=== PATIENT | female | born 1930 ===

== ENCOUNTER 2019-05-03 15:21 | Inpatient (IN) | payer MEDICARE ==
[2019-05-04] MEDS: VALPROIC ACID 250 MG/5 ML ORAL LIQD PO SCH ×4 (00:14→21:15)
[2019-05-04] MEDS: OMEGA-3 FATTY ACIDS/FISH OIL 1 GRAM CAP PO SCH ×4 (00:14→21:15)
[2019-05-04] MEDS: MIRTAZAPINE 15 MG TAB PO SCH ×2 (00:15→21:15)
--- NOTE | 2019-05-04 09:55 | History and Physical Report ---
GP History & Physical - History of Present Illness Date of admission: 05/03/19 Date of Examination: 05/04/19 Reason for Admission: Danger to others, Unable to care for self Chief Complaint: demential with behavioral disturbance History of Present Illness: Medical records reviewed and the patient's progress discussed with nursing staff. Pt is alert, calm, and cooperative. Vital signs checked in right arm 97.6, 965 sat, 90hr. br 126/45. Pt able to answer some of the admission questionnaire with some noted slight confusion. Ms Ely is a 88 years old female, she is aaox1, she is dress appropriately, she is ambulatory. she reports that she is somewhere in the hospital, when asked if she knew why she was here she stated, " Ajay thinks I am crazy, he never like me". she reported ajay as her son -in- law. she denies SI, stated, "I couldn't hurt a pin, the bible say its wrong". She reports hearing voices for about a year, she reports, i hear them but i dont respond to them, i listen to their conversations, but i ignore them a lot. she denies seeing things. 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 Family Psychiatric History None reported or documented SOCIAL HISTORY Marital Status: Living Arrangements:family Employment Status: retired Access to guns/weapons:no Education:12th History of Abuse: no Legal History:denies REVIEW OF SYSTEMS Constitutional: Negative for weight loss ENT: Negative for stridor Respiratory: Negative for cough or hemoptysis All other systems reviewed and are negative MENTAL STATUS General Appearance and Behavior: good eye contact, cooperative with questioning and polite Cooperation: Cooperative Psychomotor Behavior: within normal limits Mood: OK Affect and affective range: Congruent with stated mood Thought Process: circumstantial Thought Content: goal- directed Speech: Normal volume and Regular rate and rhythm Intellectual Functioning Average Suicidal Ideation: Denies SI Homicidal Ideation: Denies HI Impulse Control: intact Insight and Judgment: limited Memory: forgetful Attention: Normal Orientation: aaox1 Diagnoses: dementia with behavioral disturbance Treatment Plan Patient will be admitted for inpatient psychiatric evaluation, medication adjustment and close monitoring The patient's behavior, mood, sleep and appetite will be closely monitored. Patient will be enrolled in individual and group therapeutic sessions and encouraged to attend. Patient will be provided with a safe and structured environment. Patient's physical health needs will be addressed by the Hospitalist. Hospitalist Consulted Labs including CBC, CMP, Lipid profile and Hemoglobin A1C ordered Social Assessment will be completed and the Hat Body Sorter will work with patient and family to ensure a suitable and safe disposition Medication adjustment will be made as clinically indicated Usual Wellness Latter-Day/Preservation: - Start [place]-3 for brain health, reduce impulsivity, and as adjunctive treatment for mood disorder, continue upon discharge given overall benefits. The patient agreed on the treatment plan, understood the risk, benefit, alternative treatment, potential consequence of no treatment, and gave informed consent. Physician Certification Statement This is an acknowledgement statement that ROD MERAZ is a 88 year old F who requires inpatient psychiatric admission for treatment which could reasonably be expected to improve the patient's condition for: Estimated period of time patient will need to remain in the hospital: [7 ] Plan for post-hospital care: [outpatient ] Legal Status: Involuntary Reaction to Hospitalization: Resistant Medications and Allergies Allergies Allergy/AdvReac Type Severity Reaction Status Date / Time fluticasone furoate Allergy Unknown Verified 05/03/19 17:04 [From Breo Ellipta] naproxen [From Aleve] Allergy Unknown Verified 05/03/19 17:04 vilanterol Allergy Unknown Verified 05/03/19 17:04 [From Breo Ellipta] Home Medications Medication Instructions Recorded Confirmed Last Taken Type Cardizem 180 mg PO QDAY 05/03/19 05/03/19 Unknown History Dofetilide [Tikosyn] 250 mcg PO BID 05/03/19 05/03/19 Unknown History Mirtazapine 7.5 mg PO QHS 05/03/19 05/03/19 Unknown History Pantoprazole Sodium [Protonix] 40 mg PO QDAY 05/03/19 05/03/19 Unknown History Valproic Acid 125 mg PO BID 05/03/19 05/03/19 Unknown History Active Meds: Active Medications Fish Oil (Fish Oil) 2,000 mg PO BID [facility] Last Admin: 05/04/19 00:14 Dose: 2,000 mg Documented by: Haloperidol Lactate (Haldol) 5 mg IM Q6H PRN PRN Reason: Agitation Mirtazapine (Remeron) 7.5 mg PO QHS [facility] Last Admin: 05/04/19 00:15 Dose: 7.5 mg Documented by: Pantoprazole Sodium (Protonix) 40 mg PO QDAY [facility] Valproic Acid (Depakene Liq) 125 mg PO BID [facility] Last Admin: 05/04/19 00:14 Dose: 125 mg Documented by: Past psychiatric history - Past Medical History Past Medical History: atrial fib Results - Results Labs/Vitals: Last Vital Signs Temp 97.6 F 05/03/19 23:35 Pulse 90 05/03/19 23:35 Resp 18 05/03/19 23:35 BP Pulse Ox Physical Examination - Constitutional Vitals: Vital Signs Temp Pulse Resp BP Pulse Ox 97.6 F 90 18 05/03/19 23:35 05/03/19 23:35 05/03/19 23:35 Temperature -Last 24 Hours Temperature 97.6 F Mental Status Exam - Vital signs Last Vital Signs Temp 97.6 F 05/03/19 23:35 Pulse 90 05/03/19 23:35 Resp 18 05/03/19 23:35 BP Pulse Ox Physician Certification - Certification Statement Physician Certification Statement: This is an acknowledgement statement that ROD MERAZ is a 88 year old F who requires inpatient psychiatric admission for treatment which could reasonably be expected to improve the patient's condition for Estimated period of time patient will need to remain in the hospital: [7 ] Plan for post-hospital care: [outpatient ]
[2019-05-04] MEDS: PANTOPRAZOLE 40 MG TAB PO SCH ×2 (10:24→11:12)
[2019-05-04 15:45] LABS: Basophils % (Auto) 0.3 % (0.0-1.8); Eosinophils # (Auto) 0.2 K/mm3 (0.0-0.4); Eosinophils % (Auto) 2.1 % (0.0-4.3); Hematocrit 38.6 % (30.3-42.9); Hemoglobin 13.1 gm/dl (10.1-14.3); Lymphocytes # (Auto) 1.2 K/mm3 (1.2-5.4); Lymphocytes % (Auto) 11.4 % (13.4-35.0); Mean Corpuscular HGB Conc 34 % (30-34); Mean Corpuscular Volume 89 fl (79-97); Monocytes # (Auto) 0.7 K/mm3 (0.0-0.8); Monocytes % (Auto) 6.7 % (0.0-7.3); Platelet Count 202 K/mm3 (140-440); Red Blood Count 4.32 M/mm3 (3.65-5.03); Red Cell Distribution Width 13.5 % (13.2-15.2)
[2019-05-04 16:05] LABS: BUN/Creatinine Ratio 29; Blood Urea Nitrogen 23 mg/dL (7-17); Calcium 9.1 mg/dL (8.4-10.2); Hemolysis Index 13
--- NOTE | 2019-05-04 16:44 | Consultation ---
History of Present Illness - Reason for Consult Consult date: 05/04/19 afib Requesting physician: GUERA MENDEZ - History of Present Illness Patient is an 88-year-old female with past medical history significant for atrial fibrillation, prior history of endocarditis, hip replacement artificial aortic valve replacement. The patient presents to the Hetal psych unit from an outside facility where she was treated for paranoia. She is currently actively being managed by the psychiatric team. We will consulted to evaluate and help manage her medical condition. She denies any chest pain nausea vomiting at this time she is lethargic after eating and did not want to talk much. No other adverse event is reported by nursing staff. 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 Question diabetes mellitus Congestive heart failure Dementia Past History Past Medical History: atrial fib, hypertension, hyperlipidemia Past Surgical History: No surgical history Social history: no significant social history, lives with family, full code Family history: no significant family history Medications and Allergies Allergies Allergy/AdvReac Type Severity Reaction Status Date / Time fluticasone furoate Allergy Unknown Verified 05/03/19 17:04 [From Breo Ellipta] naproxen [From Aleve] Allergy Unknown Verified 05/03/19 17:04 vilanterol Allergy Unknown Verified 05/03/19 17:04 [From Breo Ellipta] Home Medications Medication Instructions Recorded Confirmed Last Taken Type Cardizem 180 mg PO QDAY 05/03/19 05/03/19 Unknown History Dofetilide [Tikosyn] 250 mcg PO BID 05/03/19 05/03/19 Unknown History Mirtazapine 7.5 mg PO QHS 05/03/19 05/03/19 Unknown History Pantoprazole Sodium [Protonix] 40 mg PO QDAY 05/03/19 05/03/19 Unknown History Valproic Acid 125 mg PO BID 05/03/19 05/03/19 Unknown History Active Meds: Active Medications Fish Oil (Fish Oil) 2,000 mg PO BID [facility] Last Admin: 05/04/19 11:12 Dose: Not Given Documented by: Haloperidol Lactate (Haldol) 5 mg IM Q6H PRN PRN Reason: Agitation Mirtazapine (Remeron) 7.5 mg PO QHS [facility] Last Admin: 05/04/19 00:15 Dose: 7.5 mg Documented by: Pantoprazole Sodium (Protonix) 40 mg PO QDAY [facility] Last Admin: 05/04/19 11:12 Dose: Not Given Documented by: Valproic Acid (Depakene Liq) 125 mg PO BID [facility] Last Admin: 05/04/19 11:11 Dose: Not Given Documented by: Review of Systems ROS unobtainable: due to mental status All systems: negative Constitutional: no weight loss, no weight gain, no fever, no chills Ears, nose, mouth and throat: no nasal congestion Cardiovascular: no palpitations, no dyspnea on exertion, no high blood pressure Gastrointestinal: no abdominal pain, no vomiting, no hematemesis Exam - Physical Exam Narrative exam: VITAL SIGNS: Reviewed. GENERAL: The patient appears normally developed, lethargic, Vital signs as documented. HEAD: No signs of head trauma. EYES: Pupils are equal. Extraocular motions intact. EARS: Hearing grossly intact. MOUTH: Oropharynx is normal. NECK: No adenopathy, no JVD. CHEST: Chest with clear breath sounds bilaterally. No wheezes, rales, or rhonchi. CARDIAC: Regular rate and rhythm. S1 and S2, without murmurs, gallops, or rubs. VASCULAR: No Edema. Peripheral pulses normal and equal in all extremities. ABDOMEN: Soft, non tender and non distended. No rebound or guarding, and no masses palpated. Bowel Sounds normal. MUSCULOSKELETAL: Good range of motion of all major joints. Extremities without clubbing, cyanosis or edema. NEUROLOGIC EXAM: Alert and oriented x 3 No focal sensory or strength deficits. Speech normal. Follows commands. PSYCHIATRIC: Mood normal. SKIN: detail exam as documented in skin assessment - Constitutional Vitals: Temp Pulse Resp BP Pulse Ox 97.6 F 90 18 05/03/19 23:35 05/03/19 23:35 05/03/19 23:35 Results - Labs CBC & Chem 7: 05/04/19 15:21 05/04/19 15:21 Labs: Abnormal lab results 05/04/19 05/04/19 05/04/19 Range/Units 15:21 15:21 15:21 Lymph % (Auto) 11.4 L (13.4-35.0) % Seg Neutrophils % 79.5 H (40.0-70.0) % Seg Neutrophils # 8.4 H (1.8-7.7) K/mm3 Chloride 93.9 L (98-107) mmol/L BUN 23 H (7-17) mg/dL Valproic Acid 14.7 L (50-100) ug/mL Assessment and Plan Patient is an 88-year-old female with past medical history significant for atrial fibrillation, prior history of endocarditis, hip replacement artificial aortic valve replacement. The patient presents to the Hetal psych unit from an outside facility where she was treated for paranoia. She is currently actively being managed by the psychiatric team. We will consulted to evaluate and help manage her medical condition. She denies any chest pain nausea vomiting at this time she is lethargic after eating and did not want to talk much. No other adverse event is reported by nursing staff. Paranoia- Management per psych A-FIB: Stable, agree with resumption of meds Hip replacement Artificial aortic valve replacement Question diabetes mellitus: stable, no full detail, not on any medication, will check A1C Congestive heart failure: stable Dementia Thank you for allowing us to take part in the care of your patient please reconsult if needed.
--- NOTE | 2019-05-05 08:59 | Progress Note ---
Subjective Date of service: 05/05/19 Subjective Comment: Subjective Comment: Reviewed the patient's medical chart and discussed progress with nursing staff. Per chart, pt is alert and oriented to person, confused, delusional, irritable, refused bedtime medication, refused snacks, pt requires no prn during the shift, pt slept for approximately 6hrs during the shift. 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 she denies SI/HI and AVH. She report her mood as hurting. Reason for continued admission into the hospital: Improve tx, medication compliance and increase confusion REVIEW OF SYSTEMS Constitutional: Negative for weight loss ENT: Negative for stridor Respiratory: Negative for cough or hemoptysis All other systems reviewed and are negative Mental Status Exam Appearance:dress appriopriately Behavior: calm cooperative Mood: hurting Affect: congruent with mood Thought Process: goal directed Speech: normal Thought Content Harmfulness : denies Hallucinations:denies Delusions: no Consciousness: Alert Cognition/Memory: Fair Insight/Judgment: Limited. Assessment: dementia with behavioral disturbance Treatment Plan Due to the psychiatric conditions and treatment listed in the Assessment and Plan - the patient requires continued hospitalization. Will continue inpatient treatment to allow for medication adjustment and monitoring. Will continue q15 min safety checks. Will encourage the use of environmental modifications and non-pharmacologic approaches for the management of behavioral and psychological symptoms. Medication adjustment made today: none Will continue current psych medications Monitor for medication side effects. The patient will continue on medications for physical illnesses, and Hospitalist will closely monitor these Continue intensive physical and occupational therapies. Monitor patient's mood, sleep, appetite, and behavior closely. Encourage patient to participate in individual and group therapeutic sessions on the bone. Will provide a safe and therapeutic environment for patient. ELOS 3 days Medications and Allergies Allergies Allergy/AdvReac Type Severity Reaction Status Date / Time fluticasone furoate Allergy Unknown Verified 05/03/19 17:04 [From Breo Ellipta] naproxen [From Aleve] Allergy Unknown Verified 05/03/19 17:04 vilanterol Allergy Unknown Verified 05/03/19 17:04 [From Breo Ellipta] Home Medications Medication Instructions Recorded Confirmed Last Taken Type Cardizem 180 mg PO QDAY 05/03/19 05/03/19 Unknown History Dofetilide [Tikosyn] 250 mcg PO BID 05/03/19 05/03/19 Unknown History Mirtazapine 7.5 mg PO QHS 05/03/19 05/03/19 Unknown History Pantoprazole Sodium [Protonix] 40 mg PO QDAY 05/03/19 05/03/19 Unknown History Valproic Acid 125 mg PO BID 05/03/19 05/03/19 Unknown History Active Meds: Active Medications Fish Oil (Fish Oil) 2,000 mg PO BID [facility] Last Admin: 05/04/19 21:15 Dose: Not Given Documented by: Haloperidol Lactate (Haldol) 5 mg IM Q6H PRN PRN Reason: Agitation Mirtazapine (Remeron) 7.5 mg PO QHS [facility] Last Admin: 05/04/19 21:15 Dose: Not Given Documented by: Pantoprazole Sodium (Protonix) 40 mg PO QDAY [facility] Last Admin: 05/04/19 11:12 Dose: Not Given Documented by: Valproic Acid (Depakene Liq) 125 mg PO BID [facility] Last Admin: 05/04/19 21:15 Dose: Not Given Documented by: Results - Results Labs/Vitals: Laboratory Last Values WBC 10.6 K/mm3 (4.5-11.0) 05/04/19 15:21 RBC 4.32 M/mm3 (3.65-5.03) 05/04/19 15:21 Hgb 13.1 gm/dl (10.1-14.3) 05/04/19 15:21 Hct 38.6 % (30.3-42.9) 05/04/19 15:21 MCV 89 fl (79-97) 05/04/19 15:21 MCH 30 pg (28-32) 05/04/19 15:21 MCHC 34 % (30-34) 05/04/19 15:21 RDW 13.5 % (13.2-15.2) 05/04/19 15:21 Plt Count 202 K/mm3 (140-440) 05/04/19 15:21 Lymph % (Auto) 11.4 % (13.4-35.0) L 05/04/19 15:21 Richardson % (Auto) 6.7 % (0.0-7.3) 05/04/19 15:21 Eos % (Auto) 2.1 % (0.0-4.3) 05/04/19 15:21 Baso % (Auto) 0.3 % (0.0-1.8) 05/04/19 15:21 Lymph # 1.2 K/mm3 (1.2-5.4) 05/04/19 15:21 Richardson # 0.7 K/mm3 (0.0-0.8) 05/04/19 15:21 Eos # 0.2 K/mm3 (0.0-0.4) 05/04/19 15:21 Baso # 0.0 K/mm3 (0.0-0.1) 05/04/19 15:21 Seg Neutrophils % 79.5 % (40.0-70.0) H 05/04/19 15:21 Seg Neutrophils # 8.4 K/mm3 (1.8-7.7) H 05/04/19 15:21 Sodium 137 mmol/L (137-145) 05/04/19 15:21 Potassium 4.1 mmol/L (3.6-5.0) 05/04/19 15:21 Chloride 93.9 mmol/L (98-107) L 05/04/19 15:21 Carbon Dioxide 25 mmol/L (22-30) 05/04/19 15:21 Anion Gap 22 mmol/L 05/04/19 15:21 BUN 23 mg/dL (7-17) H 05/04/19 15:21 Creatinine 0.8 mg/dL (0.7-1.2) 05/04/19 15:21 Estimated GFR > 60 ml/min 05/04/19 15:21 BUN/Creatinine Ratio 29 % 05/04/19 15:21 Glucose 83 mg/dL (65-100) 05/04/19 15:21 Hemoglobin A1c 5.1 % (4-6) 05/04/19 15:21 Calcium 9.1 mg/dL (8.4-10.2) 05/04/19 15:21 TSH 1.200 mlU/mL (0.270-4.200) 05/04/19 15:21 Valproic Acid 14.7 ug/mL (50-100) L 05/04/19 15:21 Last Vital Signs Temp 97.9 F 05/04/19 08:20 Pulse 94 H 05/04/19 22:00 Resp 20 05/04/19 22:00 BP 121/51 05/04/19 08:20 Pulse Ox 95 05/04/19 08:20
[2019-05-05] MEDS: OMEGA-3 FATTY ACIDS/FISH OIL 1 GRAM CAP PO SCH ×3 (09:34→21:45)
[2019-05-05] MEDS: PANTOPRAZOLE 40 MG TAB PO SCH ×2 (09:34→10:01)
[2019-05-05] MEDS: VALPROIC ACID 250 MG/5 ML ORAL LIQD PO SCH ×3 (09:35→21:45)
[2019-05-05] MEDS: MIRTAZAPINE 15 MG TAB PO SCH (21:45)
[2019-05-05] MEDS: HALOPERIDOL LACTATE 5 MG/1 ML INJ IM PRN (23:08)
--- NOTE | 2019-05-06 07:38 | Progress Note ---
Subjective Date of service: 05/06/19 Principal diagnosis: Dementia w/Behavioral Disturbance Subjective Comment: Reviewed the medical chart and discussed the patient's progress with nursing staff. The nurse note states the patient has become increasingly agitated after going to bed. She refused all her medications this evening. She keeps trying to get up and get dressed stating that she is leaving. She has been reoriented and given comfort. Staff has tried distraction by talking about her family. The patient is staring at staff with angry affect and yelling at staff because we won't provide her clothing to leave. Haldol 5 mg im given for agitation. Subjective Complaint During my interview this morning the patient was lying in bed asleep. Arouses easily but drifts back to sleep. She is dressed appropriately. The patient is hard of hearing. She is a/o x 2. Mrs. Stone says she's here for "life care." The patient says she is "tired and stiff" when asked how she was feeling. She says "not well" when inquiring about her sleep. Mrs. Stone denies SI/HI or halluc inations of any kind. She replies "I'm not hungry" when asked about her appetite. Reason for continued stay in the hospital: The patient has increasing agitation and is unable to care for herself REVIEW OF SYSTEMS Constitutional: Negative for weight loss ENT: Negative for stridor Respiratory: Negative for cough or hemoptysis All other systems reviewed and are negative Mental Status Exam Appearance: In bed. Asleep. Fair eye contact Behavior: Calm Mood: "tired" Affect: Congruent with stated mood Thought Process: goal directed Speech: Normal pace and tone Thought Content Harmfulness Denies SI/HI Hallucinations: Denies Delusions: none elicited Consciousness: Drowsy Cognition/Memory: Limited Insight/Judgment: Limited. Diagnoses: dementia with behavioral disturbance Treatment Plan Due to the psychiatric conditions and treatment listed in the Assessment and Plan - the patient requires continued hospitalization. Will continue inpatient treatment to allow for medication adjustment and monitoring. Will continue q15 min safety checks. Will encourage the use of environmental modifications and non-pharmacologic approaches for the management of behavioral and psychological symptoms. Medication adjustment made today: No changes made today Will continue current psych medications Monitor for medication side effects. The patient will continue on medications for physical illnesses, and Hospitalist will closely monitor these Continue intensive physical and occupational therapies. Monitor patient's mood, sleep, appetite, and behavior closely. Encourage patient to participate in individual and group therapeutic sessions on the bone. Will provide a safe and therapeutic environment for patient. CONRAD 4 days Legal Status: Involuntary Reaction to Hospitalization: Resistant Medications and Allergies Allergies Allergy/AdvReac Type Severity Reaction Status Date / Time fluticasone furoate Allergy Unknown Verified 05/03/19 17:04 [From Breo Ellipta] naproxen [From Aleve] Allergy Unknown Verified 05/03/19 17:04 vilanterol Allergy Unknown Verified 05/03/19 17:04 [From Breo Ellipta] Home Medications Medication Instructions Recorded Confirmed Last Taken Type Cardizem 180 mg PO QDAY 05/03/19 05/03/19 Unknown History Dofetilide [Tikosyn] 250 mcg PO BID 05/03/19 05/03/19 Unknown History Mirtazapine 7.5 mg PO QHS 05/03/19 05/03/19 Unknown History Pantoprazole Sodium [Protonix] 40 mg PO QDAY 05/03/19 05/03/19 Unknown History Valproic Acid 125 mg PO BID 05/03/19 05/03/19 Unknown History Active Meds: Active Medications Fish Oil (Fish Oil) 2,000 mg PO BID [facility] Last Admin: 05/05/19 21:45 Dose: Not Given Documented by: Haloperidol Lactate (Haldol) 5 mg IM Q6H PRN PRN Reason: Agitation Last Admin: 05/05/19 23:08 Dose: 5 mg Documented by: Mirtazapine (Remeron) 7.5 mg PO QHS [facility] Last Admin: 05/05/19 21:45 Dose: Not Given Documented by: Pantoprazole Sodium (Protonix) 40 mg PO QDAY [facility] Last Admin: 05/05/19 10:01 Dose: Not Given Documented by: Valproic Acid (Depakene Liq) 125 mg PO BID [facility] Last Admin: 05/05/19 21:45 Dose: Not Given Documented by: Results - Results Labs/Vitals: Laboratory Last Values WBC 10.6 K/mm3 (4.5-11.0) 05/04/19 15:21 RBC 4.32 M/mm3 (3.65-5.03) 05/04/19 15:21 Hgb 13.1 gm/dl (10.1-14.3) 05/04/19 15:21 Hct 38.6 % (30.3-42.9) 05/04/19 15:21 MCV 89 fl (79-97) 05/04/19 15:21 MCH 30 pg (28-32) 05/04/19 15:21 MCHC 34 % (30-34) 05/04/19 15:21 RDW 13.5 % (13.2-15.2) 05/04/19 15:21 Plt Count 202 K/mm3 (140-440) 05/04/19 15:21 Lymph % (Auto) 11.4 % (13.4-35.0) L 05/04/19 15:21 [place] % (Auto) 6.7 % (0.0-7.3) 05/04/19 15:21 Eos % (Auto) 2.1 % (0.0-4.3) 05/04/19 15:21 Baso % (Auto) 0.3 % (0.0-1.8) 05/04/19 15:21 Lymph # 1.2 K/mm3 (1.2-5.4) 05/04/19 15:21 [place]bert # 0.7 K/mm3 (0.0-0.8) 05/04/19 15:21 Eos # 0.2 K/mm3 (0.0-0.4) 05/04/19 15:21 Baso # 0.0 K/mm3 (0.0-0.1) 05/04/19 15:21 Seg Neutrophils % 79.5 % (40.0-70.0) H 05/04/19 15:21 Seg Neutrophils # 8.4 K/mm3 (1.8-7.7) H 05/04/19 15:21 Sodium 137 mmol/L (137-145) 05/04/19 15:21 Potassium 4.1 mmol/L (3.6-5.0) 05/04/19 15:21 Chloride 93.9 mmol/L (98-107) L 05/04/19 15:21 Carbon Dioxide 25 mmol/L (22-30) 05/04/19 15:21 Anion Gap 22 mmol/L 05/04/19 15:21 BUN 23 mg/dL (7-17) H 05/04/19 15:21 Creatinine 0.8 mg/dL (0.7-1.2) 05/04/19 15:21 Estimated GFR > 60 ml/min 05/04/19 15:21 BUN/Creatinine Ratio 29 % 05/04/19 15:21 Glucose 83 mg/dL (65-100) 05/04/19 15:21 Hemoglobin A1c 5.1 % (4-6) 05/04/19 15:21 Calcium 9.1 mg/dL (8.4-10.2) 05/04/19 15:21 TSH 1.200 mlU/mL (0.270-4.200) 05/04/19 15:21 Valproic Acid 14.7 ug/mL (50-100) L 05/04/19 15:21 Last Vital Signs Temp 97.3 F L 05/05/19 20:12 Pulse 118 H 05/05/19 20:12 Resp 18 05/05/19 20:12 BP 116/60 05/05/19 20:12 Pulse Ox 96 05/05/19 20:12
[2019-05-06] MEDS ORDERED: VALPROIC ACID 125 MG PO SCH (10:00)
[2019-05-06] MEDS ORDERED: CARDIZEM 180 MG PO SCH (10:00)
[2019-05-06] MEDS ORDERED: DOFETILIDE 250 MCG PO SCH (10:00)
[2019-05-06] MEDS ORDERED: NON-FORMULARY EACH (Pantoprazole Sodium [Protonix] 40 MG) PO SCH (10:00)
[2019-05-06] MEDS: dilTIAZem CD 180 MG CAP PO SCH (11:33)
[2019-05-06] MEDS: VALPROIC ACID 250 MG/5 ML ORAL LIQD PO SCH ×2 (11:34→21:07)
[2019-05-06] MEDS: OMEGA-3 FATTY ACIDS/FISH OIL 1 GRAM CAP PO SCH ×2 (11:34→21:07)
[2019-05-06] MEDS: PANTOPRAZOLE 40 MG TAB PO SCH (11:35)
[2019-05-06] MEDS: MIRTAZAPINE 15 MG TAB PO SCH (21:07)
--- NOTE | 2019-05-07 07:43 | Progress Note ---
Subjective Date of service: 05/07/19 Principal diagnosis: Dementia w/Behavioral Disturbance Subjective Comment: Reviewed the medical chart and discussed the patient's progress with nursing staff. The nurse note states the patient awake in the dayroom. patient is pleasant upon approach. no signs of distress noted. Subjective Complaint During my interview this morning the patient was sitting in dayroom with other patient. She was dressed appropriately. Good hygiene. Pleasant, calm, cooperative and good eye contact. She is a/o x 2. The patient is hard of hearing. She says she's here because she "broke her hip." She says she "didn't sleep well because her leg was aching." She says her mood is "good." Mrs. Stone denies SI/HI, she states "no, I couldn't harm a flea." She denies hallucinations of any kind. Reason for continued stay in the hospital: The patient is unable to care for herself REVIEW OF SYSTEMS Constitutional: Negative for weight loss ENT: Negative for stridor Respiratory: Negative for cough or hemoptysis All other systems reviewed and are negative Mental Status Exam Appearance: Awake. Good hygiene. Good eye contact Behavior: Pleasant, calm, cooperative Mood: Good Affect: Congruent with stated mood Thought Process: goal directed Speech: Normal pace and tone Thought Content Harmfulness Denies SI/HI Hallucinations: Denies Delusions: none elicited Consciousness: Alert Cognition/Memory: Limited Insight/Judgment: Limited. Diagnoses: dementia with behavioral disturbance Treatment Plan Due to the psychiatric conditions and treatment listed in the Assessment and Plan - the patient requires continued hospitalization. Will continue inpatient treatment to allow for medication adjustment and monitoring. Will continue q15 min safety checks. Will encourage the use of environmental modifications and non-pharmacologic approaches for the management of behavioral and psychological symptoms. Medication adjustment made today: No changes made today Will continue current psych medications Monitor for medication side effects. The patient will continue on medications for physical illnesses, and Hospitalist will closely monitor these Continue intensive physical and occupational therapies. Monitor patient's mood, sleep, appetite, and behavior closely. Encourage patient to participate in individual and group therapeutic sessions on the bone. Will provide a safe and therapeutic environment for patient. ELOS 2 days Medications and Allergies Allergies Allergy/AdvReac Type Severity Reaction Status Date / Time fluticasone furoate Allergy Unknown Verified 05/03/19 17:04 [From Breo Ellipta] naproxen [From Aleve] Allergy Unknown Verified 05/03/19 17:04 vilanterol Allergy Unknown Verified 05/03/19 17:04 [From Breo Ellipta] Home Medications Medication Instructions Recorded Confirmed Last Taken Type Cardizem 180 mg PO QDAY 05/03/19 05/03/19 Unknown History Dofetilide [Tikosyn] 250 mcg PO BID 05/03/19 05/03/19 Unknown History Mirtazapine 7.5 mg PO QHS 05/03/19 05/03/19 Unknown History Pantoprazole Sodium [Protonix] 40 mg PO QDAY 05/03/19 05/03/19 Unknown History Valproic Acid 125 mg PO BID 05/03/19 05/03/19 Unknown History Active Meds: Active Medications Diltiazem HCl (Cardizem Cd) 180 mg PO QDAY [facility] Last Admin: 05/06/19 11:33 Dose: Not Given Documented by: Fish Oil (Fish Oil) 2,000 mg PO BID [facility] Last Admin: 05/06/19 21:07 Dose: 2,000 mg Documented by: Haloperidol Lactate (Haldol) 5 mg IM Q6H PRN PRN Reason: Agitation Last Admin: 05/05/19 23:08 Dose: 5 mg Documented by: Mirtazapine (Remeron) 7.5 mg PO QHS [facility] Last Admin: 05/06/19 21:07 Dose: 7.5 mg Documented by: Miscellaneous Medication (Dofetilide [Tikosyn]) 250 mcg PO BID [facility] Pantoprazole Sodium (Protonix) 40 mg PO QDAY [facility] Last Admin: 05/06/19 11:35 Dose: Not Given Documented by: Valproic Acid (Depakene Liq) 125 mg PO BID [facility] Last Admin: 05/06/19 21:07 Dose: 125 mg Documented by: Results - Results Labs/Vitals: Laboratory Last Values WBC 10.6 K/mm3 (4.5-11.0) 05/04/19 15:21 RBC 4.32 M/mm3 (3.65-5.03) 05/04/19 15:21 Hgb 13.1 gm/dl (10.1-14.3) 05/04/19 15:21 Hct 38.6 % (30.3-42.9) 05/04/19 15:21 MCV 89 fl (79-97) 05/04/19 15:21 MCH 30 pg (28-32) 05/04/19 15:21 MCHC 34 % (30-34) 05/04/19 15:21 RDW 13.5 % (13.2-15.2) 05/04/19 15:21 Plt Count 202 K/mm3 (140-440) 05/04/19 15: Lymph % (Auto) 11.4 % (13.4-35.0) L 05/04/19 15:21 [place] % (Auto) 6.7 % (0.0-7.3) 05/04/19 15:21 Eos % (Auto) 2.1 % (0.0-4.3) 05/04/19: Baso % (Auto) 0.3 % (0.0-1.8) 05/04/19 15:21 Lymph # 1.2 K/mm3 (1.2-5.4) 05/04/19 15: [place] # 0.7 K/mm3 (0.0-0.8) 05/04/19 15: Eos # 0.2 K/mm3 (0.0-0.4) 05/04/19: Baso # 0.0 K/mm3 (0.0-0.1) 05/04/19 15: Seg Neutrophils % 79.5 % (40.0-70.0) H 05/04/19 15:21 Seg Neutrophils # 8.4 K/mm3 (1.8-7.7) H 05/04/19 15:21 Sodium 137 mmol/L (137-145) 05/04/19 15: Potassium 4.1 mmol/L (3.6-5.0) 05/04/19 15: Chloride 93.9 mmol/L (98-107) L 05/04/19 15: Carbon Dioxide 25 mmol/L (22-30) 05/04/19 15:21 Anion Gap 22 mmol/L 05/04/19 15:21 BUN 23 mg/dL (7-17) H 05/04/19 15:21 Creatinine 0.8 mg/dL (0.7-1.2) 05/04/19 15: Estimated GFR > 60 ml/min 05/04/19 15:21 BUN/Creatinine Ratio 29 % 05/04/19 15:21 Glucose 83 mg/dL (65-100) 05/04/19 15:21 Hemoglobin A1c 5.1 % (4-6) 05/04/19 15:21 Calcium 9.1 mg/dL (8.4-10.2) 05/04/19 15: TSH 1.200 mlU/mL (0.270-4.200) 05/04/19 15: Valproic Acid 14.7 ug/mL (50-100) L 05/04/19 15:21 Last Vital Signs Temp 97.3 F L 05/06/19 22:00 Pulse 75 05/06/19 22:00 Resp 18 05/06/19 22:00 BP 123/40 05/06/19 22:00 Pulse Ox 96 05/06/19 22:00
[2019-05-07] MEDS: VALPROIC ACID 250 MG/5 ML ORAL LIQD PO SCH ×2 (09:20→21:40)
[2019-05-07] MEDS: OMEGA-3 FATTY ACIDS/FISH OIL 1 GRAM CAP PO SCH ×2 (09:20→21:40)
[2019-05-07] MEDS: dilTIAZem CD 180 MG CAP PO SCH (09:20)
[2019-05-07] MEDS: PANTOPRAZOLE 40 MG TAB PO SCH (09:20)
[2019-05-07] MEDS: MIRTAZAPINE 15 MG TAB PO SCH (21:40)
[2019-05-07] MEDS: HALOPERIDOL LACTATE 5 MG/1 ML INJ IM PRN (22:19)
--- NOTE | 2019-05-08 08:29 | Progress Note ---
Subjective Date of service: 05/08/19 Principal diagnosis: Dementia w/Behavioral Disturbance Subjective Comment: Reviewed the medical chart and discussed the patient's progress with nursing staff. The nurse note states the patient refused HS meds became agitated and tried to swing at staff when they tried to clear the table. Patient started shouting "the snipers are coming to get you" she was difficult to redirect. The patient was assisted to bed still combative and still refusing meds hitting staff hands when meds are offered again. She began shouting for her daughter saying "my daughter is here to take me home." The patient given haldol 5mg IM for her agitation. During my interview this morning the patient was in bed. Asleep. Easily arouses. She is dressed appropriately. She is a/o x 3. She says she feels "pretty good." but says she's "sore." She says her night went "okay," despite staff reporting combativeness and agitation. The patient denies any problems with her appetite. She denies SI/HI or hallucinations of any kind. Reason for continued stay in the hospital: The patient continues to show confusion, agitation and aggression. REVIEW OF SYSTEMS Constitutional: Negative for weight loss ENT: Negative for stridor Respiratory: Negative for cough or hemoptysis All other systems reviewed and are negative Mental Status Exam Appearance: Awake. Good hygiene. Good eye contact Behavior: Pleasant, calm, cooperative Mood: Good Affect: Congruent with stated mood Thought Process: goal directed Speech: Normal pace and tone Thought Content Harmfulness Denies SI/HI Hallucinations: Denies Delusions: none elicited Consciousness: Alert Cognition/Memory: Limited Insight/Judgment: Limited. Diagnoses: dementia with behavioral disturbance Treatment Plan Due to the psychiatric conditions and treatment listed in the Assessment and Plan - the patient requires continued hospitalization. Will continue inpatient treatment to allow for medication adjustment and monitoring. Will continue q15 min safety checks. Will encourage the use of environmental modifications and non-pharmacologic approaches for the management of behavioral and psychological symptoms. Medication adjustment made today: Started Risperidone 0.25mg po BID to help with agitation and irritability. Started Melatonin 5mg po QHS prn to help promote rest Will continue current psych medications Monitor for medication side effects. The patient will continue on medications for physical illnesses, and Hospitalist will closely monitor these Continue intensive physical and occupational therapies. Monitor patient's mood, sleep, appetite, and behavior closely. Encourage patient to participate in individual and group therapeutic sessions on the bone. Will provide a safe and therapeutic environment for patient. ELOS 3 days Medications and Allergies Allergies Allergy/AdvReac Type Severity Reaction Status Date / Time fluticasone furoate Allergy Unknown Verified 05/03/19 17:04 [From Breo Ellipta] naproxen [From Aleve] Allergy Unknown Verified 05/03/19 17:04 vilanterol Allergy Unknown Verified 05/03/19 17:04 [From Breo Ellipta] Home Medications Medication Instructions Recorded Confirmed Last Taken Type Cardizem 180 mg PO QDAY 05/03/19 05/03/19 Unknown History Dofetilide [Tikosyn] 250 mcg PO BID 05/03/19 05/03/19 Unknown History Mirtazapine 7.5 mg PO QHS 05/03/19 05/03/19 Unknown History Pantoprazole Sodium [Protonix] 40 mg PO QDAY 05/03/19 05/03/19 Unknown History Valproic Acid 125 mg PO BID 05/03/19 05/03/19 Unknown History Active Meds: Active Medications Diltiazem HCl (Cardizem Cd) 180 mg PO QDAY [facility] Last Admin: 05/07/19 09:20 Dose: Not Given Documented by: Fish Oil (Fish Oil) 2,000 mg PO BID [facility] Last Admin: 05/07/19 21:40 Dose: Not Given Documented by: Haloperidol Lactate (Haldol) 5 mg IM Q6H PRN PRN Reason: Agitation Last Admin: 05/07/19 22:19 Dose: 5 mg Documented by: Mirtazapine (Remeron) 7.5 mg PO QHS [facility] Last Admin: 05/07/19 21:40 Dose: Not Given Documented by: Miscellaneous Medication (Dofetilide [Tikosyn]) 250 mcg PO BID [facility] Pantoprazole Sodium (Protonix) 40 mg PO QDAY [facility] Last Admin: 05/07/19 09:20 Dose: Not Given Documented by: Valproic Acid (Depakene Liq) 125 mg PO BID [facility] Last Admin: 05/07/19 21:40 Dose: Not Given Documented by: Results - Results Labs/Vitals: Laboratory Last Values WBC 10.6 K/mm3 (4.5-11.0) 05/04/19 15: RBC 4.32 M/mm3 (3.65-5.03) 05/04/19 15: Hgb 13.1 gm/dl (10.1-14.3) 05/04/19 15: Hct 38.6 % (30.3-42.9) 05/04/19 15:21 MCV 89 fl (79-97) 05/04/19 15: MCH 30 pg (28-32) 05/04/19 15: MCHC 34 % (30-34) 05/04/19 15: RDW 13.5 % (13.2-15.2) 05/04/19 15: Plt Count 202 K/mm3 (140-440) 05/04/19 15: Lymph % (Auto) 11.4 % (13.4-35.0) L 05/04/19: [place] % (Auto) 6.7 % (0.0-7.3) 05/04/19: Eos % (Auto) 2.1 % (0.0-4.3) 05/04/19 15: Baso % (Auto) 0.3 % (0.0-1.8) 05/04/19 15: Lymph # 1.2 K/mm3 (1.2-5.4) 05/04/19: [place] # 0.7 K/mm3 (0.0-0.8) 05/04/19 15: Eos # 0.2 K/mm3 (0.0-0.4) 05/04/19: Baso # 0.0 K/mm3 (0.0-0.1) 05/04/19 15: Seg Neutrophils % 79.5 % (40.0-70.0) H 05/04/19 15: Seg Neutrophils # 8.4 K/mm3 (1.8-7.7) H 05/04/19 15: Sodium 137 mmol/L (137-145) 05/04/19 15:21 Potassium 4.1 mmol/L (3.6-5.0) 05/04/19 15: Chloride 93.9 mmol/L (98-107) L 05/04/19 15: Carbon Dioxide 25 mmol/L (22-30) 05/04/19 15:21 Anion Gap 22 mmol/L 05/04/19 15:21 BUN 23 mg/dL (7-17) H 05/04/19 15:21 Creatinine 0.8 mg/dL (0.7-1.2) 05/04/19 15:21 Estimated GFR > 60 ml/min 05/04/19 15:21 BUN/Creatinine Ratio 29 % 05/04/19 15:21 Glucose 83 mg/dL (65-100) 05/04/19 15:21 Hemoglobin A1c 5.1 % (4-6) 05/04/19 15:21 Calcium 9.1 mg/dL (8.4-10.2) 05/04/19 15:21 TSH 1.200 mlU/mL (0.270-4.200) 05/04/19 15:21 Valproic Acid 14.7 ug/mL (50-100) L 05/04/19 15:21 Last Vital Signs Temp 97.8 F 05/07/19 22:00 Pulse 95 H 05/07/19 22:00 Resp 20 05/07/19 22:00 BP 120/55 05/07/19 22:00 Pulse Ox 96 05/07/19 22:00
[2019-05-08] MEDS: OMEGA-3 FATTY ACIDS/FISH OIL 1 GRAM CAP PO SCH ×3 (09:24→22:03)
[2019-05-08] MEDS: dilTIAZem CD 180 MG CAP PO SCH (09:24)
[2019-05-08] MEDS: PANTOPRAZOLE 40 MG TAB PO SCH (09:25)
[2019-05-08] MEDS: risperiDONE 0.25 MG TAB PO SCH ×3 (09:25→22:01)
[2019-05-08] MEDS: VALPROIC ACID 250 MG/5 ML ORAL LIQD PO SCH ×3 (09:25→22:00)
[2019-05-08] MEDS ORDERED: MELATONIN 5 MG TAB PO PRN (10:00)
[2019-05-08] MEDS: MIRTAZAPINE 15 MG TAB PO SCH ×2 (21:32→22:02)
--- NOTE | 2019-05-09 09:54 | Progress Note ---
Subjective Date of service: 05/09/19 Principal diagnosis: Dementia w/Behavioral Disturbance Subjective Comment: Reviewed the medical chart and discussed the patient's progress with nursing staff. The nurse note states the patient was calmer and less angry this evening. However, she refused her medications stating she was waiting for her hair appointment. She has refused to go to bed. She will not get out of a wheelchair she is sitting in. She remains sitting at the doors that open onto the unit. She asks staff to let her out. She states "My people are waiting out there for me." She believes the delusion and can not be reoriented. She remains calm During my interview this morning the patient was in the dayroom. She was sitting in a wheelchair. A/o x 2 to 3. She is dressed appropriately. Good hygiene. She makes good eye contact. She says she's "doing pretty good, but she thinks she got up too early." She says she came her "because of hip problems" but says she "doesn't know why they brought me here. I'm not crazy." Mrs. Stone then says, "I run up and down the [place]hen a lot but I'm myself. I'm up here with these people who can't hold a conversation." The patient says she's "ready to go home" and says she "has a girl who stays with her who's very honest." Reason for continued stay in the hospital: The patient has shown significant improvement, but still shows some agitation in the evening, likely [employer]. REVIEW OF SYSTEMS Constitutional: Negative for weight loss ENT: Negative for stridor Respiratory: Negative for cough or hemoptysis All other systems reviewed and are negative Mental Status Exam Appearance: Awake. Good hygiene. Good eye contact Behavior: Pleasant, calm, cooperative Mood: Good Affect: Congruent with stated mood Thought Process: goal directed Speech: Normal pace and tone Thought Content Harmfulness Denies SI/HI Hallucinations: Denies Delusions: none elicited Consciousness: Alert Cognition/Memory: Limited Insight/Judgment: Limited. Diagnoses: dementia with behavioral disturbance Treatment Plan Due to the psychiatric conditions and treatment listed in the Assessment and Plan - the patient requires continued hospitalization. Will continue inpatient treatment to allow for medication adjustment and monitoring. Will continue q15 min safety checks. Will encourage the use of environmental modifications and non-pharmacologic approaches for the management of behavioral and psychological symptoms. Medication adjustment made today: -Changes to meds made yesterday. No changes today. Will continue current psych medications Monitor for medication side effects. The patient will continue on medications for physical illnesses, and Hospitalist will closely monitor these Continue intensive physical and occupational therapies. Monitor patient's mood, sleep, appetite, and behavior closely. Encourage patient to participate in individual and group therapeutic sessions on the bone. Will provide a safe and therapeutic environment for patient. ELOS 1 to 2 days Medications and Allergies Allergies Allergy/AdvReac Type Severity Reaction Status Date / Time fluticasone furoate Allergy Unknown Verified 05/03/19 17:04 [From Breo Ellipta] naproxen [From Aleve] Allergy Unknown Verified 05/03/19 17:04 vilanterol Allergy Unknown Verified 05/03/19 17:04 [From Breo Ellipta] Home Medications Medication Instructions Recorded Confirmed Last Taken Type Cardizem 180 mg PO QDAY 05/03/19 05/03/19 Unknown History Dofetilide [Tikosyn] 250 mcg PO BID 05/03/19 05/03/19 Unknown History Mirtazapine 7.5 mg PO QHS 05/03/19 05/03/19 Unknown History Pantoprazole Sodium [Protonix] 40 mg PO QDAY 05/03/19 05/03/19 Unknown History Valproic Acid 125 mg PO BID 05/03/19 05/03/19 Unknown History Active Meds: Active Medications Diltiazem HCl (Cardizem Cd) 180 mg PO QDAY [facility] Last Admin: 05/08/19 09:24 Dose: 180 mg Documented by: Fish Oil (Fish Oil) 2,000 mg PO BID [facility] Last Admin: 05/08/19 22:03 Dose: Not Given Documented by: Haloperidol Lactate (Haldol) 5 mg IM Q6H PRN PRN Reason: Agitation Last Admin: 05/07/19 22:19 Dose: 5 mg Documented by: Melatonin (Melatonin) 5 mg PO QHS PRN PRN Reason: Sleep Mirtazapine (Remeron) 7.5 mg PO QHS [facility] Last Admin: 05/08/19 22:02 Dose: Not Given Documented by: Miscellaneous Medication (Dofetilide [Tikosyn]) 250 mcg PO BID [facility] Pantoprazole Sodium (Protonix) 40 mg PO QDAY [facility] Last Admin: 05/08/19 09:25 Dose: 40 mg Documented by: Risperidone (Risperdal) 0.25 mg PO BID [facility] Last Admin: 05/08/19 22:01 Dose: Not Given Documented by: Valproic Acid (Depakene Liq) 125 mg PO BID [facility] Last Admin: 05/08/19 22:00 Dose: Not Given Documented by: Results - Results Labs/Vitals: Laboratory Last Values WBC 10.6 K/mm3 (4.5-11.0) 05/04/19 15: RBC 4.32 M/mm3 (3.65-5.03) 05/04/19 15: Hgb 13.1 gm/dl (10.1-14.3) 05/04/19 15: Hct 38.6 % (30.3-42.9) 05/04/19 15: MCV 89 fl (79-97) 05/04/19 15: MCH 30 pg (28-32) 05/04/19 15: MCHC 34 % (30-34) 05/04/19 15: RDW 13.5 % (13.2-15.2) 05/04/19 15: Plt Count 202 K/mm3 (140-440) 05/04/19 15: Lymph % (Auto) 11.4 % (13.4-35.0) L 05/04/19 15: [place] % (Auto) 6.7 % (0.0-7.3) 05/04/19 15: Eos % (Auto) 2.1 % (0.0-4.3) 05/04/19 15: Baso % (Auto) 0.3 % (0.0-1.8) 05/04/19 15: Lymph # 1.2 K/mm3 (1.2-5.4) 05/04/19 15: [place] # 0.7 K/mm3 (0.0-0.8) 05/04/19 15: Eos # 0.2 K/mm3 (0.0-0.4) 05/04/19 15: Baso # 0.0 K/mm3 (0.0-0.1) 05/04/19 15:21 Seg Neutrophils % 79.5 % (40.0-70.0) H 05/04/19 15:21 Seg Neutrophils # 8.4 K/mm3 (1.8-7.7) H 05/04/19 15:21 Sodium 137 mmol/L (137-145) 05/04/19 15:21 Potassium 4.1 mmol/L (3.6-5.0) 05/04/19 15:21 Chloride 93.9 mmol/L (98-107) L 05/04/19 15:21 Carbon Dioxide 25 mmol/L (22-30) 05/04/19 15:21 Anion Gap 22 mmol/L 05/04/19 15:21 BUN 23 mg/dL (7-17) H 05/04/19 15:21 Creatinine 0.8 mg/dL (0.7-1.2) 05/04/19 15:21 Estimated GFR > 60 ml/min 05/04/19 15:21 BUN/Creatinine Ratio 29 % 05/04/19 15:21 Glucose 83 mg/dL (65-100) 05/04/19 15:21 Hemoglobin A1c 5.1 % (4-6) 05/04/19 15:21 Calcium 9.1 mg/dL (8.4-10.2) 05/04/19 15:21 TSH 1.200 mlU/mL (0.270-4.200) 05/04/19 15:21 Valproic Acid 14.7 ug/mL (50-100) L 05/04/19 15:21 Last Vital Signs Temp 97.5 F L 05/08/19 19:42 Pulse 92 H 05/08/19 19:42 Resp 16 05/08/19 19:42 BP 108/44 05/08/19 19:42 Pulse Ox 86 05/08/19 19:42
[2019-05-09] MEDS: risperiDONE 0.25 MG TAB PO SCH ×2 (11:22→21:17)
[2019-05-09] MEDS: OMEGA-3 FATTY ACIDS/FISH OIL 1 GRAM CAP PO SCH ×2 (11:22→21:17)
[2019-05-09] MEDS: PANTOPRAZOLE 40 MG TAB PO SCH (11:22)
[2019-05-09] MEDS: VALPROIC ACID 250 MG/5 ML ORAL LIQD PO SCH ×2 (11:23→21:18)
[2019-05-09] MEDS: dilTIAZem CD 180 MG CAP PO SCH (11:24)
[2019-05-09] MEDS: MIRTAZAPINE 15 MG TAB PO SCH (21:17)
--- NOTE | 2019-05-10 09:15 | Progress Note ---
Subjective Date of service: 05/10/19 Principal diagnosis: Dementia w/Behavioral Disturbance Subjective Comment: Reviewed the medical chart and discussed the patient's progress with nursing staff. The nurse note states the patient is medication compliant, good appetite, able to make needs known,alert and oriented to person and place, calm and cooperative , interacts well with peers, no behavioral issues, pt rested well during the night, presents as sleeping for 8hrs plus, During my interview this morning the patient in the hallway sitting in a shaka- katja. She is dressed appropriately. Good hygiene. She makes good eye contact. She is a/o x 3. She is calm and cooperative. The patient states her "night went well. I slept all night." She says her mood is "fine. If I could get awake." She denies SI/HI or hallucinations of any kind. 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 REVIEW OF SYSTEMS Constitutional: Negative for weight loss ENT: Negative for stridor Respiratory: Negative for cough or hemoptysis All other systems reviewed and are negative Mental Status Exam Appearance: Awake. Good hygiene. Good eye contact Behavior: Pleasant, calm, cooperative Mood: Good Affect: Congruent with stated mood Thought Process: goal directed Speech: Normal pace and tone Thought Content Harmfulness Denies SI/HI Hallucinations: Denies Delusions: none elicited Consciousness: Alert Cognition/Memory: Limited Insight/Judgment: Limited. Diagnoses: dementia with behavioral disturbance Treatment Plan Due to the psychiatric conditions and treatment listed in the Assessment and Plan - the patient requires continued hospitalization. Will continue inpatient treatment to allow for medication adjustment and monitoring. Will continue q15 min safety checks. Will encourage the use of environmental modifications and non-pharmacologic approaches for the management of behavioral and psychological symptoms. Medication adjustment made today: -Changes to meds made yesterday. No changes today. Will continue current psych medications Monitor for medication side effects. The patient will continue on medications for physical illnesses, and Hospitalist will closely monitor these Continue intensive physical and occupational therapies. Monitor patient's mood, sleep, appetite, and behavior closely. Encourage patient to participate in individual and group therapeutic sessions on the bone. Will provide a safe and therapeutic environment for patient. ELOS 1 to 2 days Medications and Allergies Allergies Allergy/AdvReac Type Severity Reaction Status Date / Time fluticasone furoate Allergy Unknown Verified 05/03/19 17:04 [From Breo Ellipta] naproxen [From Aleve] Allergy Unknown Verified 05/03/19 17:04 vilanterol Allergy Unknown Verified 05/03/19 17:04 [From Breo Ellipta] Home Medications Medication Instructions Recorded Confirmed Last Taken Type Cardizem 180 mg PO QDAY 05/03/19 05/03/19 Unknown History Dofetilide [Tikosyn] 250 mcg PO BID 05/03/19 05/03/19 Unknown History Mirtazapine 7.5 mg PO QHS 05/03/19 05/03/19 Unknown History Pantoprazole Sodium [Protonix] 40 mg PO QDAY 05/03/19 05/03/19 Unknown History Valproic Acid 125 mg PO BID 05/03/19 05/03/19 Unknown History Active Meds: Active Medications Diltiazem HCl (Cardizem Cd) 180 mg PO QDAY [facility] Last Admin: 05/09/19 11:24 Dose: Not Given Documented by: Fish Oil (Fish Oil) 2,000 mg PO BID [facility] Last Admin: 05/09/19 21:17 Dose: 2,000 mg Documented by: Haloperidol Lactate (Haldol) 5 mg IM Q6H PRN PRN Reason: Agitation Last Admin: 05/07/19 22:19 Dose: 5 mg Documented by: Melatonin (Melatonin) 5 mg PO QHS PRN PRN Reason: Sleep Mirtazapine (Remeron) 7.5 mg PO QHS [facility] Last Admin: 05/09/19 21:17 Dose: 7.5 mg Documented by: Miscellaneous Medication (Dofetilide [Tikosyn]) 250 mcg PO BID [facility] Pantoprazole Sodium (Protonix) 40 mg PO QDAY [facility] Last Admin: 05/09/19 11:22 Dose: 40 mg Documented by: Risperidone (Risperdal) 0.25 mg PO BID [facility] Last Admin: 05/09/19 21:17 Dose: 0.25 mg Documented by: Valproic Acid (Depakene Liq) 125 mg PO BID [facility] Last Admin: 05/09/19 21:18 Dose: 125 mg Documented by: Results - Results Labs/Vitals: Laboratory Last Values WBC 10.6 K/mm3 (4.5-11.0) 05/04/19 15:21 RBC 4.32 M/mm3 (3.65-5.03) 05/04/19 15:21 Hgb 13.1 gm/dl (10.1-14.3) 05/04/19 15:21 Hct 38.6 % (30.3-42.9) 05/04/19 15:21 MCV 89 fl (79-97) 05/04/19 15:21 MCH 30 pg (28-32) 05/04/19 15:21 MCHC 34 % (30-34) 05/04/19 15:21 RDW 13.5 % (13.2-15.2) 05/04/19 15:21 Plt Count 202 K/mm3 (140-440) 05/04/19 15:21 Lymph % (Auto) 11.4 % (13.4-35.0) L 05/04/19 15:21 [place] % (Auto) 6.7 % (0.0-7.3) 05/04/19 15:21 Eos % (Auto) 2.1 % (0.0-4.3) 05/04/19 15:21 Baso % (Auto) 0.3 % (0.0-1.8) 05/04/19 15:21 Lymph # 1.2 K/mm3 (1.2-5.4) 05/04/19 15: [place] # 0.7 K/mm3 (0.0-0.8) 05/04/19 15:21 Eos # 0.2 K/mm3 (0.0-0.4) 05/04/19 15: Baso # 0.0 K/mm3 (0.0-0.1) 05/04/19 15:21 Seg Neutrophils % 79.5 % (40.0-70.0) H 05/04/19 15:21 Seg Neutrophils # 8.4 K/mm3 (1.8-7.7) H 05/04/19 15:21 Sodium 137 mmol/L (137-145) 05/04/19 15:21 Potassium 4.1 mmol/L (3.6-5.0) 05/04/19 15:21 Chloride 93.9 mmol/L (98-107) L 05/04/19 15:21 Carbon Dioxide 25 mmol/L (22-30) 05/04/19 15:21 Anion Gap 22 mmol/L 05/04/19 15:21 BUN 23 mg/dL (7-17) H 05/04/19 15:21 Creatinine 0.8 mg/dL (0.7-1.2) 05/04/19 15:21 Estimated GFR > 60 ml/min 05/04/19 15:21 BUN/Creatinine Ratio 29 % 05/04/19 15:21 Glucose 83 mg/dL (65-100) 05/04/19 15:21 Hemoglobin A1c 5.1 % (4-6) 05/04/19 15:21 Calcium 9.1 mg/dL (8.4-10.2) 05/04/19 15:21 TSH 1.200 mlU/mL (0.270-4.200) 05/04/19 15:21 Valproic Acid 14.7 ug/mL (50-100) L 05/04/19 15:21 Last Vital Signs Temp 98.1 F 05/09/19 22:00 Pulse 73 05/09/19 22:00 Resp 18 05/09/19 22:00 BP 115/41 05/09/19 22:00 Pulse Ox 96 05/09/19 22:00
--- NOTE | 2019-05-10 09:27 | Discharge Summary ---
Providers - Providers Date of Admission: 05/03/19 23:23 Date of discharge: 05/10/19 Attending physician: GUERA MENDEZ MD 05/03/19 16:01 Consult to Physician [CONS] Routine Comment: Consulting Provider: PING NIEVES Physician Instructions: Reason For Exam: medical management 05/05/19 07:46 Consult to Wound/ET Nurse [CONS] Routine Reason For Exam: wound eval Primary care physician: [employer] Hospitalization Condition: Stable Hospital course: The patient was provided inpatient psychiatric treatment with safe and suppo rtive environment, group/individual therapy, psychiatric medication, medication adjustment, adverse effect monitor, medical evaluation, medical treatment, social service assessment, social support meeting, placement assessment and psycho-education. The patients mood, cognition, behavior, motivation, compliance to treatment and appreciation on family/social support are improved and stabilized. At the time of discharge, the patient had no suicidal ideas, no homicidal ideas, no aggressive thoughts, no endangering behavior and no debilitating adverse effects. The patient agreed on the treatment plan, understood the risk, benefit, alternative treatment, potential consequence of no treatment, and gave informed consent. Disposition: DC- TO HOME OR SELFCARE Time spent for discharge: 35 Allergies/Adverse Reactions: Allergies fluticasone furoate [From Breo Ellipta] Allergy (Verified 05/03/19 17:04) Unknown naproxen [From Aleve] Allergy (Verified 05/03/19 17:04) Unknown vilanterol [From Breo Ellipta] Allergy (Verified 05/03/19 17:04) Unknown Vital Signs: Last Vital Signs Temp 98.1 F 05/09/19 22:00 Pulse 73 05/09/19 22:00 Resp 18 05/09/19 22:00 BP 115/41 05/09/19 22:00 Pulse Ox 96 05/09/19 22:00 Last Lab: Laboratory Last Values WBC 10.6 K/mm3 (4.5-11.0) 05/04/19 15:21 RBC 4.32 M/mm3 (3.65-5.03) 05/04/19 15:21 Hgb 13.1 gm/dl (10.1-14.3) 05/04/19 15:21 Hct 38.6 % (30.3-42.9) 05/04/19 15:21 MCV 89 fl (79-97) 05/04/19 15:21 MCH 30 pg (28-32) 05/04/19 15:21 MCHC 34 % (30-34) 05/04/19 15:21 RDW 13.5 % (13.2-15.2) 05/04/19 15:21 Plt Count 202 K/mm3 (140-440) 05/04/19 15:21 Lymph % (Auto) 11.4 % (13.4-35.0) L 05/04/19 15:21 [place] % (Auto) 6.7 % (0.0-7.3) 05/04/19 15:21 Eos % (Auto) 2.1 % (0.0-4.3) 05/04/19 15:21 Baso % (Auto) 0.3 % (0.0-1.8) 05/04/19 15:21 Lymph # 1.2 K/mm3 (1.2-5.4) 05/04/19 15:21 [place] # 0.7 K/mm3 (0.0-0.8) 05/04/19 15:21 Eos # 0.2 K/mm3 (0.0-0.4) 05/04/19 15:21 Baso # 0.0 K/mm3 (0.0-0.1) 05/04/19 15:21 Seg Neutrophils % 79.5 % (40.0-70.0) H 05/04/19 15:21 Seg Neutrophils # 8.4 K/mm3 (1.8-7.7) H 05/04/19 15:21 Sodium 137 mmol/L (137-145) 05/04/19 15:21 Potassium 4.1 mmol/L (3.6-5.0) 05/04/19 15:21 Chloride 93.9 mmol/L (98-107) L 05/04/19 15:21 Carbon Dioxide 25 mmol/L (22-30) 05/04/19 15:21 Anion Gap 22 mmol/L 05/04/19 15:21 BUN 23 mg/dL (7-17) H 05/04/19 15:21 Creatinine 0.8 mg/dL (0.7-1.2) 05/04/19 15:21 Estimated GFR > 60 ml/min 05/04/19 15:21 BUN/Creatinine Ratio 29 % 05/04/19 15:21 Glucose 83 mg/dL (65-100) 05/04/19 15:21 Hemoglobin A1c 5.1 % (4-6) 05/04/19 15:21 Calcium 9.1 mg/dL (8.4-10.2) 05/04/19 15:21 TSH 1.200 mlU/mL (0.270-4.200) 05/04/19 15:21 Valproic Acid 14.7 ug/mL (50-100) L 05/04/19 15:21 Core Measure Documentation - Palliative Care Palliative Care/ Comfort Measures: Not Applicable - Core Measures Any of the following diagnoses?: none Exam - Constitutional Vitals: Temp Pulse Resp BP Pulse Ox 98.1 F 73 18 115/41 96 05/09/19 22:00 05/09/19 22:00 05/09/19 22:00 05/09/19 22:00 05/09/19 22:00 General appearance: Present: no acute distress, well-nourished - EENT Eyes: Present: EOM intact ENT: hearing intact, clear oral mucosa - Neck Neck: Present: supple, normal ROM - Respiratory Respiratory effort: normal Plan Activity: advance as tolerated Weight Bearing Status: Weight Bear as Tolerated Care Plan Goals: Maintain good and stable mental health Plan of Treatment: The patient should be compliant with medications, not to use drugs and not to drink alcohol. The patient understands that if suicidal ideas, homicidal ideas, or any endangering thoughts arise, the patient should immediately seek for emergent assistance including but not limited to crisis hot line and emergency room. Follow up with outpatient Psychiatrist and PCP within 7 - 14 days of discharge. Assessment: Dementia with Behavioral Disturbance Follow up with: PRIMARY CARE, [Primary Care Provider] - 7 Days Prescriptions: Melatonin [Melatonin 5MG TAB] 5 mg PO QHS PRN #30 tablet PRN Reason: Sleep risperiDONE [RisperDAL] 0.25 mg PO BID #60 tablet
[2019-05-10] MEDS: PANTOPRAZOLE 40 MG TAB PO SCH (09:37)
[2019-05-10] MEDS: dilTIAZem CD 180 MG CAP PO SCH (09:37)
[2019-05-10] MEDS: OMEGA-3 FATTY ACIDS/FISH OIL 1 GRAM CAP PO SCH (09:37)
[2019-05-10 09:38] VITALS: BP 118/46
[2019-05-10] MEDS: VALPROIC ACID 250 MG/5 ML ORAL LIQD PO SCH (09:38)
[2019-05-10] MEDS: risperiDONE 0.25 MG TAB PO SCH (09:38)
== END 2019-05-10 15:46 | disposition home or self-care (01) | DRG 884 ==
LOC: 3A 15:21 → UNDOADMIN 15:21 → 5A 23:23
PROVIDERS: ADMIT Psychiatry & Neurology Psychiatry; ATTEND Psychiatry & Neurology Psychiatry
DX: F03.91 Unspecified dementia, unspecified severity, with behavioral disturbance (principal); I48.91 Unspecified atrial fibrillation; I50.9 Heart failure, unspecified; Z95.4 Presence of other heart-valve replacement; Z88.8 Allergy status to other drugs, medicaments and biological substances; Z88.3 Allergy status to other anti-infective agents
CPT/HCPCS: 36415; 80048; 80164; 83036; 84443; 85025; G0378; J1630